=== PATIENT | male | born 1965 | race Two or more races ===

== ENCOUNTER 2022-01-24 22:12 | Emergency (ER) | payer OTHER ==
[~2022-01-24] VITALS: Ht 170.2 cm; Wt 79.4 kg
--- NOTE | 2022-01-24 22:51 | NUR ---
COVID SWAB DONE AND SENT TO LAB
--- NOTE | 2022-01-24 23:07 | NUR ---
BLOOD COLLECTED AND SENT TO LAB
--- NOTE | 2022-01-24 23:08 | NUR ---
XRAY AT BEDSIDE
[2022-01-24 23:42] LABS: BASOPHILS # (AUTO) 0.1 K/uL (0.0-0.2); BASOPHILS % (AUTO) 0.5 % (0.0-2.0); EOSINOPHILS % (AUTO) 1.2 % (0.0-6.0); HEMATOCRIT 45 % (39-51); HEMOGLOBIN 15.3 g/dL (13.5-17.5); LYMPHOCYTES # (AUTO) 1.2 K/uL (0.8-4.8); LYMPHOCYTES % (AUTO) 11.5 % (20.0-44.0); MEAN CORPUSCULAR HGB CONC 34 g/dl (31.0-36.0); MEAN CORPUSCULAR VOLUME 94 fL (80-96); MONOCYTES # (AUTO) 0.9 K/uL (0.1-1.30); MONOCYTES % (AUTO) 8.7 % (2.0-12.0); NEUTROPHILS # (AUTO) 8.1 K/uL (1.8-8.9); NEUTROPHILS % (AUTO) 78.1 % (43.0-81.0); PLATELET COUNT (AUTO) 261 K/uL (150-450); RED BLOOD CELL COUNT(AUTO) 4.75 MIL/uL (4.5-6.0); WHITE BLOOD COUNT (AUTO) 10.4 K/uL (4.3-11.0)
[2022-01-24 23:56] LABS: CALCIUM, SERUM 8.3 mg/dL (8.5-10.1); CARBON DIOXIDE 29 mmol/L (21-32); CHLORIDE 104 mmol/L (98-107); CREATININE 0.9 mg/dL (0.6-1.3); GLUCOSE 115 mg/dL (74-106); POTASSIUM 3.9 mmol/L (3.5-5.1); SODIUM SERUM 140 mmol/L (136-145); UREA NITROGEN, BLOOD 27 mg/dL (7-18)
[2022-01-25] MEDS: IV NS 0.9% 1,000 ML BAG IV ONE (00:12)
--- NOTE | 2022-01-25 00:41 | NUR ---
Patient discharged to home in stable condition. Written and verbal after care instructions given. Patient verbalizes understanding of instruction.
[2022-01-25 00:42] VITALS: BP 128/81
== END 2022-01-25 01:07 | disposition home or self-care (01) ==
LOC: ER 22:14
DX: R55 Syncope and collapse (principal); E86.0 Dehydration; I82.401 Acute embolism and thrombosis of unspecified deep veins of right lower extremity
CPT/HCPCS: 99285; 71045; 87426; 93005; 85025; 80048; 36415; 84484; 96360; C9803; J7030